=== PATIENT | female | born 1980 | race Caucasian/White ===

== ENCOUNTER 2020-06-23 17:14 | Emergency (ER) | payer SELFPAY ==
[2020-06-23] VITALS (7 sets, daily range): BP systolic 113–155; BP diastolic 83–96; PULSE 62–81; RESP 17–19; TEMP 36.5; O2SAT 96–99; BMI 30.4
--- NOTE | 2020-06-23 18:06 | CTR_ITS ---
PROCEDURE INFORMATION: Exam: CT Abdomen And Pelvis With Contrast Exam date and time: 06/23/2020 6:50 PM Age: 40 years old Clinical indication: Abdominal pain; Localized; Left lower quadrant (llq); Prior surgery; Surgery type: Hyst, gb; Additional info: Abd pain TECHNIQUE: Imaging protocol: Computed tomography of the abdomen and pelvis with intravenous contrast. Radiation optimization: All CT scans at this facility use at least one of these dose optimization techniques: automated exposure control; mA and/or kV adjustment per patient size (includes targeted exams where dose is matched to clinical indication); or iterative reconstruction. Contrast material: OMNI 300; Contrast volume: 95 ml; Contrast route: INTRAVENOUS (IV); COMPARISON: No relevant prior studies available. RADIATION DOSE METRICS: Total DLP (mGy-cm): 1815.23 FINDINGS: Lungs: The lung bases appear unremarkable. Liver: Unremarkable. No mass. Gallbladder and bile ducts: The gallbladder is surgically absent. No biliary dilatation. Pancreas: The pancreas is normal in appearance. No pancreatic duct dilatation. Spleen: The spleen is normal in size and appearance. Adrenal glands: The adrenal glands appear within normal limits. Kidneys and ureters: The kidneys are normal in morphology. No hydronephrosis. No solid mass. Stomach and bowel: No acute gastric abnormality demonstrated. The small bowel is unremarkable as demonstrated. No acute abnormality/inflammatory change of the colon. Appendix: The appendix is normal in appearance. No evidence of appendicitis. Intraperitoneal space: No pneumoperitoneum. No significant fluid collection. Vasculature: No abdominal aortic aneurysm. Lymph nodes: No pathologically enlarged lymph nodes are demonstrated. Urinary bladder: The urinary bladder is unremarkable in appearance. Reproductive: The uterus is not visualized, consistent with hysterectomy. Bones/joints: Unremarkable. No acute fracture. Soft tissues: Unremarkable. CT/CT abdomen pelvis w con* [id number] IMPRESSION: No acute abnormality demonstrated in the abdomen and pelvis. Radiation Dose CTDIVOL = (mGy): DLP = 1815.23 (mGy-cm)
--- NOTE | 2020-06-23 18:12 | W.ED.ABDPA2 ---
HPI - Abdominal Pain General: Chief Complaint: Abdominal Pain Stated Complaint: DIVERTICULITIS Time Seen by Provider: 06/23/20 18:02 Source: patient Mode of arrival: ambulatory Limitations: no limitations History of Present Illness: HPI narrative: 40-year-old female states she has had left lower quadrant abdominal pain over the last 2 weeks. She was diagnosed by physical exam with diverticulitis by her PCP and has been treated with Cipro and Flagyl. She states that her pain is worsened and she followed up with him today and sent her here for a CT scan. States her pain is an 8 out of 10 is worse with palpation and movement. She has had no vomiting. She denies any fevers. MD elicited complaint: abdominal pain Onset (ago): week(s) Location: LLQ Severity: moderate Associated Symptoms: Denies chills, diarrhea, dysuria, fever(s), nausea and vomiting Review of Systems Const: Denies: fever(s), chills, body aches or change in appetite Eyes: Denies: blurry vision or eye discomfort ENMT: Denies: throat pain or dental pain Card: Denies: chest pain Resp: Denies: dyspnea GI: Reports: abdominal pain; Denies: nausea, vomiting or diarrhea : Denies: dysuria Musc: Denies: neck pain or back pain Skin/Breast: Denies: rash Neuro: Denies: headache(s) Psych: Denies: depression Roger/Lymph: Denies: easy bruising All/Imm: Denies: urticaria PFSH ED PFSH: Medical History (Updated 06/23/20 @ 20:53 by Tahir Edward MD) Bipolar I disorder, current or most recent episode depressed, with psychotic features Chronic post-traumatic stress disorder Social History Smoking and tobacco status: never smoked Second hand smoke exposure: No Alcohol intake: never Desire information about alcohol rehabilitation?: No Desire information about substance/drug rehabilitation?: No History of recent travel: No Current gender identity: Female Physical Exam Const: COMMON NORMALS: no acute distress, patient oriented x3 and healthy appearing HENMT: COMMON NORMALS: normocephalic and atraumatic HEAD & SCALP: normocephalic and atraumatic Eye: COMMON NORMALS: Equal, round and reactive pupils present and EOMs intact bilaterally PUPIL: Yes Equal, round and reactive pupils present Neck/C-Spine: COMMON NORMALS: full ROM and supple Chest: COMMONS NORMALS: normal inspection of the chest and normal palpation of entire chest wall Resp: COMMON NORMALS: normal respiratory effort, No retractions, No use of accessory muscles and clear to auscultation bilaterally AUSCULTATION: clear to auscultation bilaterally Cardio: COMMON NORMALS: regular rate, regular rhythm and No murmurs present (Cardio) RATE: regular rate RHYTHM: regular rhythm GI: COMMON NORMALS: Normal to inspection, nondistended, normoactive bowel sounds present, Soft to palpation and no masses PALPATION: Yes Soft to palpation and Yes Tenderness to palpation present (GI) Details: LLQ Extremity: COMMON NORMALS: normal to inspection and full ROM Neuro: COMMON NORMALS: patient oriented x3, moves all extremities and no focal motor deficits Psych: COMMON NORMALS: mental status grossly normal, Normal thought process present and cooperative THOUGHT PROCESS: Normal thought process present Skin: COMMON NORMALS: no rashes or lesions noted and no wounds GENERAL SKIN EXAM: no rashes or lesions noted Course Vital Signs: Vital signs: Vital Signs Temperature 97.7 F 06/23/20 17:15 Pulse Rate 65 06/23/20 20:43 Respiratory Rate 19 H 06/23/20 20:43 Blood Pressure 152/96 06/23/20 20:43 Pulse Oximetry 96 06/23/20 20:43 MDM - Abdominal Pain MDM Narrative: Medical decision making narrative: Nenita presents here with abdominal pain. Her blood work and CT scan here are normal. Her pain has been on for weeks. She has no signs of acute surgical cause or mesenteric ischemia. Will start patient on Bentyl and she is to follow-up with her PCP. She is to return if worsening. Lab Data: Labs: Lab Results 06/23/20 06/23/20 06/23/20 Range/Units 18:26 18:26 19:31 WBC 8.1 (4.0-10.0) 10^3/ uL RBC 4.95 (4.1-5.3) 10^6/u L Hgb 13.7 (11.5-15.3) g/dL Hct 43.9 (37.0-47.0) % MCV 88.7 (81-99) fL MCH 27.7 L (28.0-34.0) pg MCHC 31.2 (30.0-36.0) g/dL RDW 12.9 (12.1-15.1) % Plt Count 360 (130-400) 10^3/c mm MPV 9.5 (7.4-10.4) fL Neut % (Auto) 60.9 % Lymph % (Auto) 27.1 % Gila % (Auto) 8.2 % Eos % (Auto) 2.7 % Baso % (Auto) 0.7 % Neut # (Auto) 4.95 (1.8-7.7) 10^3/u L Lymph # (Auto) 2.2 (0.8-4.8) 10^3/u L Gila # (Auto) 0.7 (0.2-0.9) 10^3/u L Eos # (Auto) 0.2 (0.0-0.8) 10^3/u L Baso # (Auto) 0.1 (0.0-0.1) 10^3/u L Nucleated RBC % (a uto) 0 % Nucleated RBCs # 0.0 /100WBC Sodium 138 (136-145) mmol/L Potassium 3.8 (3.5-5.1) mmol/L Chloride 103 (98-107) mmol/L Carbon Dioxide 26 (22-29) mmol/L Anion Gap 12.8 (5-19) BUN 9 (6-20) mg/dL Creatinine 0.5 (0.5-0.9) mg/dL GFR Calculation 138.1 H (90-130) mL/min Glucose 204 H (65-115) mg/dL Calculated Osmolal ity 291 (285-295) mOsm/k g Calcium 9.6 (8.5-10.5) mg/dL Total Bilirubin 0.2 (0.15-1.2) mg/dL AST 16 (0-32) U/L ALT 13 (0-33) U/L Alkaline Phosphata se 91 (35-105) IU/L Total Protein 7.8 (6.6-8.7) g/dL Albumin 3.9 (3.5-5.2) g/dL Globulin 3.9 (1.3-4.6) g/dL Lipase 36 (13-60) U/L Urine Color Dark yellow (Yellow) Urine Appearance Clear (CLEAR) Urine pH 6.5 (5-7) Ur Specific Gravit y 1.015 (1.005-1.030) Urine Protein Trace (Negative) Urine Glucose (UA) 2+ (Normal) Urine Ketones Negative (Negative) Urine Blood Neg (Negative) Urine Nitrate Negative (Negative) Urine Bilirubin Neg (Negative) Urine Urobilinogen Norm (Negative) mg/dL Ur Leukocyte Kimberly ase Negative (Negative) Imaging Data ^: CT Abd/Pel: Attestation: I personally reviewed and interpreted this imaging study as follows: Radiologist's impression: [employer] [address] [address] [address] Scan Report Signed Patient: Nenita Austin Unit #: [id number] : 1980 Age/Sex: 40 / F ADM Date: 06/23/20 Loc: ER Room/Bed: Attending Dr: Ordering Provider/Ordering MD: Tahir Edward MD Date of Service: 06/23/20 Procedure(s): CT abdomen pelvis w con* [id number] Accession Number(s): [id number] Report Number: [id number] PROCEDURE INFORMATION: Exam: CT Abdomen And Pelvis With Contrast Exam date and time: 06/23/2020 6:50 PM Age: 40 years old Clinical indication: Abdominal pain; Localized; Left lower quadrant (llq); Prior surgery; Surgery type: Hyst, gb; Additional info: Abd pain TECHNIQUE: Imaging protocol: Computed tomography of the abdomen and pelvis with intravenous contrast. Radiation optimization: All CT scans at this facility use at least one of these dose optimization techniques: automated exposure control; mA and/or kV adjustment per patient size (includes targeted exams where dose is matched to clinical indication); or iterative reconstruction. Contrast material: OMNI 300; Contrast volume: 95 ml; Contrast route: INTRAVENOUS (IV); COMPARISON: No relevant prior studies available. RADIATION DOSE METRICS: Total DLP (mGy-cm): 1815.23 FINDINGS: Lungs: The lung bases appear unremarkable. Liver: Unremarkable. No mass. Gallbladder and bile ducts: The gallbladder is surgically absent. No biliary dilatation. Pancreas: The pancreas is normal in appearance. No pancreatic duct dilatation. Spleen: The spleen is normal in size and appearance. Adrenal glands: The adrenal glands appear within normal limits. Kidneys and ureters: The kidneys are normal in morphology. No hydronephrosis. No solid mass. Stomach and bowel: No acute gastric abnormality demonstrated. The small bowel is unremarkable as demonstrated. No acute abnormality/inflammatory change of the colon. Appendix: The appendix is normal in appearance. No evidence of appendicitis. Intraperitoneal space: No pneumoperitoneum. No significant fluid collection. Vasculature: No abdominal aortic aneurysm. Lymph nodes: No pathologically enlarged lymph nodes are demonstrated. Urinary bladder: The urinary bladder is unremarkable in appearance. Reproductive: The uterus is not visualized, consistent with hysterectomy. Bones/joints: Unremarkable. No acute fracture. Soft tissues: Unremarkable. CT/CT abdomen pelvis w con* [id number] IMPRESSION: No acute abnormality demonstrated in the abdomen and pelvis. Discharge Plan Discharge Patient Disposition: Home Clinical Impression: Abdominal pain Qualifiers: Abdominal location: generalized Qualified Code(s): R10.84 - Generalized abdominal pain Condition: Stable Prescriptions: New dicyclomine 20 mg tablet 20 mg PO TID PRN (Reason: abdominal pain) Qty: 20 RF: 0 No Action metoclopramide HCl [Reglan] 10 mg tablet 10 mg PO Q6H PRN (Reason: nausea and vomiting) RF: 0 sucralfate 1 gram tablet 1 g PO BID@0900,1800 RF: 0 metronidazole 500 mg tablet 500 mg PO Q8H RF: 0 aspirin 500 mg Tablet 1,000 mg PO BID@0900,1800 RF: 0 Effexor XR 150 mg capsule,extended release 24hr 150 mg PO DAILY@0900 RF: 0 Trileptal 300 mg tablet 300 mg PO BID@0900,1800 RF: 0 Discharge Orders: Discharge ED (Routine); Ordered 06/23/20 Ordered By: Tahir Edward Referrals: Antonio Freeman [Primary Care Provider] - Discharge Diet: Advance as tolerated Discharge Activity: Resume usual activity Patient Instructions: Abdominal Pain (ED) Coding Level of Care Code ED [employer] Salesperson for Angela Fwd Exam Comprehensive
[2020-06-23] MEDS: ondansetron 2 mg/ML SDV 2 mL 4 MG IVP (18:30)
[2020-06-23] MEDS: morphine 4 mg/mL SDV 1 mL IVP (18:30)
[2020-06-23 18:46] LABS: Basophils # 0.1 10^3/uL (0.0-0.1); Basophils % 0.7 %; Eosinophils # 0.2 10^3/uL (0.0-0.8); Eosinophils % 2.7 %; Hematocrit 43.9 % (37.0-47.0); Hemoglobin 13.7 g/dL (11.5-15.3); Lymphocytes # 2.2 10^3/uL (0.8-4.8); Lymphocytes % 27.1 %; Mean Corpuscular HGB Conc 31.2 g/dL (30.0-36.0); Mean Corpuscular Hemoglobin 27.7 pg (28.0-34.0); Mean Corpuscular Volume 88.7 fL (81-99); Mean Platelet Volume 9.5 fL (7.4-10.4); Monocytes # 0.7 10^3/uL (0.2-0.9); Monocytes % 8.2 %; Neutrophils # 4.95 10^3/uL (1.8-7.7); Neutrophils % 60.9 %; Nucleated Red Blood Cells % 0 %; Platelet Count 360 10^3/cmm (130-400); Red Blood Count 4.95 10^6/uL (4.1-5.3); Red Cell Distribution Width 12.9 % (12.1-15.1); White Blood Count 8.1 10^3/uL (4.0-10.0)
[2020-06-23] MEDS: iohexol 300 mg/mL 100 mL Btl IV (18:59)
[2020-06-23 19:33] LABS: Alanine Aminotransferase 13 U/L (0-33); Albumin Level 3.9 g/dL (3.5-5.2); Alkaline Phosphatase 91 IU/L (35-105); Anion Gap 12.8 (5-19); Aspartate Amino Transferase 16 U/L (0-32); Blood Urea Nitrogen 9 mg/dL (6-20); Calcium 9.6 mg/dL (8.5-10.5); Carbon Dioxide 26 mmol/L (22-29); Chloride 103 mmol/L (98-107); Globulin 3.9 g/dL (1.3-4.6); Glomerular Filtration Rate 138.1 mL/min (90-130); Glucose 204 mg/dL (65-115); Lipase 36 U/L (13-60); Osmolality Calculated 291 mOsm/kg (285-295); Potassium 3.8 mmol/L (3.5-5.1); Sodium 138 mmol/L (136-145); Total Bilirubin 0.2 mg/dL (0.15-1.2); Total Protein 7.8 g/dL (6.6-8.7)
[2020-06-23] MEDS: HYDROmorphone 1 mg/mL INJ 1 mL IVP (20:06)
[2020-06-23 20:20] LABS: Add Urine Microscopic? NO
[2020-06-23 20:47] LABS: Bilirubin Urine Neg (Negative); Blood Urine Neg (Negative); Glucose Urine UA 2+ (Normal); Ketones Urine Negative (Negative); Leukocyte Esterase Urine Negative (Negative); Nitrate Urine Negative (Negative); Protein Urine Trace (Negative); Specific Gravity, Urine 1.015 (1.005-1.030); Urine Appearance Clear (CLEAR); Urine Color Dark Yellow (Yellow); Urobilinogen Urine Norm (Negative); pH Urine 6.5 (5-7)
[2020-06-23] MEDS: metoclopramide 5 mg/mL SDV 2 mL 10 MG IVP (20:51)
[2020-06-23] MEDS: diphenhydrAMINE 50 mg/mL SDV 1mL IVP (20:51)
== END 2020-06-23 21:24 | disposition home or self-care (01) ==
PROVIDERS: Emergency Provider Emergency Medicine; PCP Physician Assistant Medical
DX: R10.84 Generalized abdominal pain (principal); Z79.82 Long term (current) use of aspirin
CPT/HCPCS: 12345; 74177; 80053; 81003; 83690; 85025; 96374; 96375; 99282; 99283; J1170; J1200; J2270; J2405; J2765; Q9967

== ENCOUNTER 2021-01-20 11:58 | Outpatient (CLI) | payer MEDICAID, SELFPAY ==
[2021-01-20 12:28] VITALS: BMI 34.9
--- NOTE | 2021-01-20 13:03 | PC.NURSE ---
pt not able to complete test. pt only able to hit 70% of the 85% required. pt right hip would not allow her to complete the walking to [facility]. [facility] office notified of cancellation. [place] nurse notified.
--- NOTE | 2021-01-20 13:21 | CT_ITS ---
WS: [id number] CT CHEST WITH INTRAVENOUS CONTRAST HISTORY: ABNORMAL FINDING OF LUNG FIELD TECHNIQUE: Contiguous 5 mm axial imaging performed on the thorax. Coronal and sagittal reformats are submitted. All CT scans at [facility] use at least one of these dose optimization techniq ues: automated exposure control; mA and/or kV adjustment per patient size (includes targeted exams wh ere dose is matched to clinical indication); or iterative reconstruction. CONTRAST: Omnipaque 300; 95 mL IV. DLP: 928.96 mGy.cm COMPARISON: None available. Lungs and central airway: Normal. Pleura: Normal. No pleural effusion. Heart and pericardium: Normal size heart with no pericardial effusion. Mediastinum and raad: Low-attenuation soft tissue mass in the anterior mediastinal fat measures 1.6 c m transverse. There is additional prevascular soft tissue extending along the LEFT lateral aortic arc h measuring 5.7 x 1.0 cm. No additional hilar or mediastinal nodules. No definite extension to the ao rta. No calcifications. Vessels: Normal size aortic and pulmonary artery. No coronary artery calcifications. Chest wall and lower neck: 7 mm RIGHT thyroid nodule. Small but numerous LEFT axillary lymph nodes. Upper abdomen: Mild thickening of the distal esophagus. Prior cholecystectomy. Osseous structures: No destructive process. CT/CT chest w con* [id number] IMPRESSION: 1. Anterior mediastinal and prevascular soft tissue mass as described above. D ifferential includes thymoma, thymic carcinoma and lymphoma. No prior studies f or comparison. 2. No pulmonary nodules. 3. Small but numerous LEFT axillary lymph nodes. 4. Prior cholecystectomy.
[2021-01-20] MEDS: iohexol 300 mg/mL 100 mL Btl IV (13:52)
== END 2021-01-20 11:59 | disposition home or self-care (01) ==
LOC: CDL 12:02
PROVIDERS: PCP Physician Assistant Medical; Visit Provider Physician Assistant
DX: R07.9 Chest pain, unspecified (principal); Z90.49 Acquired absence of other specified parts of digestive tract; R59.0 Localized enlarged lymph nodes
CPT/HCPCS: 71260; Q9967

== ENCOUNTER → 2021-02-02 16:02 | Outpatient (BNVA) | payer MEDICAID, SELFPAY | PROVIDERS: PCP Physician Assistant Medical; Visit Provider Internal Medicine | DX: E11.9 Type 2 diabetes mellitus without complications (principal); Z01.812 Encounter for preprocedural laboratory examination; K31.84 Gastroparesis | CPT/HCPCS: 36415; 80053; 83036; 84443; 84681 ==

== ENCOUNTER → 2021-02-21 15:00 | Outpatient (BNVA) | payer MEDICAID, SELFPAY | PROVIDERS: PCP Physician Assistant Medical; Visit Provider Internal Medicine | DX: Z01.812 Encounter for preprocedural laboratory examination (principal); K31.84 Gastroparesis; Z20.822 Contact with and (suspected) exposure to COVID-19 | CPT/HCPCS: 87635 ==

== ENCOUNTER 2021-02-24 08:51 | Day surgery (SDC) | payer MEDICAID, SELFPAY ==
[2021-02-20 15:46] VITALS: BMI 36.0
--- NOTE | 2021-02-24 09:05 | P.HP_ITS ---
Same Day Surgery H&P Indication for Procedure/HPI DATE OF PROCEDURE: February 24, 2021 CHIEF COMPLAINT/INDICATIONFOR SURGICAL PROCEDURE: Nausea and vomiting PREOP DIAGNOSIS: Nausea and vomiting PLANNED PROCEDRUE: Operation Date: 02/24/21 10:15 Proposed Procedures p EGD 57898 K31.84(Not Applicable) - Momo Hernandez MD Medications/Allergies* Home Medications Medication Instructions Recorded Confirmed Type metoclopramide HCl 10 mg tablet 10 mg PO Q6H PRN 06/16/19 02/20/21 History sucralfate 1 gram tablet 1 g PO BID@0900,1800 05/26/20 02/20/21 History aspirin 1,000 mg PO BID@0900,1800 06/23/20 02/20/21 History metformin 500 mg tablet 500 mg PO DAILY 02/02/21 02/20/21 History nitroglycerin 0.4 mg sublingual 0.4 mg SUBLINGUAL Q5M PRN 02/02/21 02/20/21 History tablet ondansetron 4 mg disintegrating 4 mg PO Q6H 02/02/21 02/20/21 History tablet Allergies/Adverse Reactions Allergy/AdvReac Type Severity Reaction Status Date / Time hydrocodone Allergy Unknown unknown Verified 02/02/21 13:49 Pertinent History/Comorbid Conditions* Medical History (Updated 02/14/21 @ 09:36 by Lorenza Boykin) Bipolar I disorder, current or most recent episode depressed, with psychotic features Chronic post-traumatic stress disorder Psychiatric care Social History Smoking and tobacco status: former smoker Quit status (tobacco): has quit using tobacco Year quit tobacco: 2015 Former quit date comment: 1 PPD X 10 YEARS Second hand smoke exposure: No Alcohol intake: never Desire information about alcohol rehabilitation?: No Desire information about substance/drug rehabilitation?: No History of recent travel: No Current gender identity: Female Pertinent Exam Findings alert, oriented x 3, clear to auscultation bilaterally, regular rate & rhythm, operative site marked and procedure specific exam findings Recommendations Surgery/Procedure today Coding Level of Care Code Acute Apprentice Architect for Angela Khan
--- NOTE | 2021-02-24 09:24 | ANES.PREANE2 ---
Pre-Anesthetic Assessment Pre-Anesthetic Assessment: Height/Weight: Height 1.7 m Weight 104.326 kg Preop Diagnosis: gastroparesis Proposed Procedure: Operation Date: 02/24/21 10:15 Proposed Procedures p EGD 63506 K31.84(Not Applicable) - Momo Hernandez MD Was Beta Sarah Beth taken within 24 hours: N/A Was Clonidine taken within 24 hours: N/A Social: Social History: No alcohol and No tobacco Exam: Pre-Anes Outpt Exam: alert, oriented x 3, clear to auscultation bilaterally and regular rate & rhythm Airway: Submandibular: WNL Cervical ROM: WNL MP: 2 Dentition: Full GI: GI: GERD Metabolic: Metabolic: DM and Morbid obesity Neuropsych: Neuropsych: Anxiety and Depression Anesthetic Plan: ASA status: 2 Anesthesia: MAC Risk of > 500 ml blood loss (7ml/kg in children): No PFSH Anesthesia PFSH: Medical History (Updated 02/14/21 @ 09:36 by Lorenza Boykin) Bipolar I disorder, current or most recent episode depressed, with psychotic features Chronic post-traumatic stress disorder Psychiatric care Social History Smoking and tobacco status: former smoker Quit status (tobacco): has quit using tobacco Year quit tobacco: 2015 Former quit date comment: 1 PPD X 10 YEARS Second hand smoke exposure: No Alcohol intake: never Desire information about alcohol rehabilitation?: No Desire information about substance/drug rehabilitation?: No History of recent travel: No Current gender identity: Female Data Anesthesia Cardiac Studies: No Data to Display
[2021-02-24] MEDS: sodium chloride 0.9% 1,000 ML 30 ML IV (09:30)
[2021-02-24 09:50] VITALS: BP 125/82; PULSE 54; RESP 16; TEMP 36.2; O2SAT 92
[2021-02-24 09:57] LABS: Glucose Point of Care 132 mg/dL (70-110)
[2021-02-24 11:03] VITALS: BP 134/94; PULSE 68; RESP 16; TEMP 36.1; O2SAT 95
[2021-02-24 11:18] VITALS: BP 136/80; PULSE 70; RESP 16; O2SAT 95
--- NOTE | 2021-02-24 13:32 | ANE.PACU2 ---
Inpatient post-anesthesia follow up: Airway intact: Yes Vital signs: Temperature 97.0 F Pulse Rate 70 Respiratory Rate 16 Blood Pressure 136/80 Pulse Oximetry 95 Oxygen Delivery Me thod Room Air Oxygen Flow Rate 3 Fraction of Inspir ed Oxygen Hydration adequate: Yes Nausea and vomiting: No Pain level: 1 Mental status: Baseline
[2021-02-27 10:47] LABS: H. Pylori / CLO Test Negative
== END 2021-02-24 11:40 | disposition home or self-care (01) ==
PROVIDERS: PCP Physician Assistant Medical; Visit Provider Internal Medicine
PROC: 0DJ08ZZ Inspection of Upper Intestinal Tract, Via Natural or Artificial Opening Endoscopic (ICD-10-PCS; CPT 43235; principal; 2021-02-24 10:15)
DX: R11.2 Nausea with vomiting, unspecified (principal); K31.84 Gastroparesis; K29.70 Gastritis, unspecified, without bleeding; Z79.82 Long term (current) use of aspirin; Z79.84 Long term (current) use of oral hypoglycemic drugs; Z87.891 Personal history of nicotine dependence
CPT/HCPCS: 36416; 43239; 82962; 87077; 96360; 96361; J2704; J3490; J7030

== ENCOUNTER 2021-05-10 11:33 | Outpatient (CLI) | payer MEDICAID, SELFPAY ==
--- NOTE | 2021-05-10 11:42 | MM_ITS ---
WS: [id number] BILATERAL DIGITAL DIAGNOSTIC MAMMOGRAM MAMMOGRAPHY WITH CAD CLINICAL INFORMATION: MASS = LT AXILLARY LYMPHADENOPATHY ON RECENT CT SCAN COMPARISON: CT chest January 20, 2021. Prior outside mammograms unavailable TECHNIQUE: Bilateral CC, MLO, and ML views. FINDINGS: Scattered fibroglandular densities bilaterally. Palpable marker outer left breast posterior depth. No definite mammographic abnormalities in this area. Ultrasound is pending. Breast parenchyma is otherwise unremarkable in appearance bilaterally with a few benign punctate calc ifications. Coarse clustered calcifications right breast. ULTRASOUND BREAST LEFT TECHNIQUE: Ultrasound left breast focused area of concern. CLINICAL INFORMATION: MASS = LT AXILLARY LYMPHADENOPATHY ON RECENT CT SCAN COMPARISON: None. FINDINGS: Ultrasound left breast area of palpable concern. At the 3:00 position normal underlying breast parenc hyma. No cystic or solid lesions. Left axilla was evaluated. A few slightly prominent but normal-appearing lymph nodes with preserved f atty hilum the largest measuring 2.0 x 1.8 x 0.9 CM. 2 additional lymph nodes measuring 2.1 x 1.7 x 0 .6 cm and 2.0 x 1.7 x 0.7 CM. No significant cortical thickening. These have a normal appearance. MM/[place] [id number] IMPRESSION: BI-RADS: 2-Benign FOLLOW UP: 1 Year Follow-up Recommend return to annual screening mammography.
== END 2021-05-10 11:34 | disposition home or self-care (01) ==
LOC: RADSHAW 11:39
PROVIDERS: PCP Physician Assistant; Visit Provider Physician Assistant
DX: R59.1 Generalized enlarged lymph nodes (principal)
CPT/HCPCS: 76642; 77066

== ENCOUNTER → 2022-01-18 13:12 | Outpatient (BNVA) | payer MEDICAID, SELFPAY | PROVIDERS: PCP Physician Assistant; Visit Provider Thoracic Surgery (Cardiothoracic Vascular Surgery) | DX: J98.59 Other diseases of mediastinum, not elsewhere classified (principal) | CPT/HCPCS: 99203 ==

== ENCOUNTER → 2022-03-01 11:42 | Outpatient (BNVA) | payer MEDICAID, SELFPAY | PROVIDERS: PCP Physician Assistant; Visit Provider Registered Nurse | DX: Z79.899 Other long term (current) drug therapy (principal) | CPT/HCPCS: 80053; 84443 ==

== ENCOUNTER 2022-03-14 14:04 | Outpatient (CLI) | payer MEDICAID, SELFPAY ==
--- NOTE | 2022-03-14 14:12 | XR_ITS ---
WS: [id number] DEXA (DUAL ENERGY X-RAY ABSORPTIOMETRY) Bone mineral density was performed using a [employer] machine. HISTORY: OTHER SPECIFIED DISORDERS OF BONE DENSITY OF ANKLE COMPARISON: None available. Lumbar spine BMD (L1-L4): 1.164 g/cm2 T score: -0.1 Z score: -1.3 Total hip BMD: Left: 0.894 g/cm2. T score: -0.9 Z score: -1.5 Right: 0.900 g/cm2. T score: -0.9 Z score: -1.5 XR/XR DEXA axial skeleton* [id number] IMPRESSION: NORMAL BONE MINERAL DENSITY based upon the WHO classification for females.
== END 2022-03-14 14:05 | disposition home or self-care (01) ==
PROVIDERS: PCP Physician Assistant; Visit Provider Physician Assistant
DX: M85.872 Other specified disorders of bone density and structure, left ankle and foot (principal)
CPT/HCPCS: 77080

== ENCOUNTER 2022-04-12 14:56 | Outpatient (CLI) | payer MEDICAID, SELFPAY ==
--- NOTE | 2022-04-12 14:30 | CT_ITS ---
WS: [id number] CT scan of the chest with IV contrast, additional two-dimensional coronal and sagittal reconstruction was performed. 04/12/2022 Clinical Data: mediastinal mass Comparison: CT chest, 01/20/2021 DLP: 757.[address] scans at [facility] use at least one of these dose optimization techniques: automated e xposure control; mA and/or kV adjustment per patient size (includes targeted exams where dose is matc hed to clinical indication); or iterative reconstruction. Findings: The possible thymic mass anterior to the aortic arch seen best at image 18 of 66 on the axial views h as not changed. Although this lesion could represent a neoplastic process, residual thymic tissue is more likely because the tissue has not changed. The anterior mediastinal lymph nodes remain the same. No new nodules, masses or effusions are seen. No pneumonia or pneumothorax is noted. The heart size is normal with no pericardial effusion. The pulmonary arterial system and thoracic aorta demonstrate no abnormalities or dilatations. There is no axillary or significant new mediastinal adenopathy. The right thyroid cyst remains the same. The upper abdomen demonstrates no change from before CT/CT chest w con* [id number] Impression: 1. No change in possible thymic mass which probably represents residual benign thymic tissue. 2. No change in anterior mediastinal lymph nodes which parallel the aortic arch .
[2022-04-12] MEDS: iohexol 350 mg/mL 100 mL Btl IV (16:40)
== END 2022-04-12 14:57 | disposition home or self-care (01) ==
LOC: RAD 14:56
PROVIDERS: PCP Physician Assistant; Visit Provider Thoracic Surgery (Cardiothoracic Vascular Surgery)
DX: J98.59 Other diseases of mediastinum, not elsewhere classified (principal)
CPT/HCPCS: 71260